=== PATIENT | female | born 1995 | race Caucasian/White ===

== ENCOUNTER 2018-06-24 13:35 | Emergency (ER) | payer BC, OTHER ==
--- NOTE | 2018-06-24 13:57 | EDPHY ---
H & P Stated Complaint: MID, UPPER LEFT AND R BUTTOCK PAIN X 1 WEEK Time Seen by Provider: 06/24/18 13:50 HPI/ROS: CHIEF COMPLAINT: Left upper back pain HISTORY OF PRESENT ILLNESS: The patient is a 23-year-old female with a history of scoliosis and chronic lower back pain. She states that over the last couple of days however she has also has developed some left upper back pain. Just below her shoulder blade. No shortness of breath. No chest pain. No nausea vomiting or diaphoresis. No recent fevers or illness. She did return from a trip to [place] few days ago. She does take control pills and occasionally smokes cigars. No leg pain or swelling. She denies risk of . Her pain is worsened by movement or with palpation. No paresthesias numbness or weakness. Severity: Moderate Modifying factors: Movement REVIEW OF SYSTEMS: Constitutional: denies: chills, fever, recent illness, recent injury EENTM: denies: blurred vision, double vision, nose congestion Respiratory: denies: cough, shortness of breath Cardiac: denies: chest pain, irregular heart rate, lightheadedness, palpitations Gastrointestinal/Abdominal: denies: abdominal pain, diarrhea, nausea, vomiting, blood streaked stools Genitourinary: denies: dysuria, frequency, hematuria, pain Musculoskeletal: See HPI Skin: denies: lesions, rash, jaundice, bruising Neurological: denies: headache, numbness, paresthesia, tingling, dizziness, weakness Hematologic/Lymphatic: denies: blood clots, easy bleeding, easy bruising Immunologic/allergic: denies: HIV/AIDS, transplant 10 systems reviewed and negative except as noted EXAM: GENERAL: Well-appearing, well-nourished and in no acute distress. HEAD: Atraumatic, normocephalic. EYES: Pupils equal round and reactive to light, extraocular movements intact, sclera anicteric, conjunctiva are normal. ENT: TMs normal, nares patent, oropharynx clear without exudates. Moist mucous membranes. NECK: Normal range of motion, supple without lymphadenopathy or JVD. LUNGS: Breath sounds clear to auscultation bilaterally and equal. No wheezes rales or rhonchi. HEART: Regular rate and rhythm without murmurs, rubs or gallops. ABDOMEN: Soft, nontender, normoactive bowel sounds. No guarding, no rebound. No masses appreciated. BACK: Mild tenderness just below left shoulder blade, pain with movement. No visible swelling or rashes. EXTREMITIES: Normal range of motion, no pitting or edema. No clubbing or cyanosis. NEUROLOGICAL: Cranial nerves II through XII grossly intact. Normal speech, normal gait. 5/5 strength, normal movement in all extremities, normal sensation , normal reflexes PSYCH: Normal mood, normal affect. SKIN: Warm, dry, normal turgor, no visible rashes or lesions. Source: Patient Exam Limitations: No limitations - Personal History LMP (Females 10-55): 1-7 Days Ago Current Tetanus/Diphtheria Vaccine: Unsure Current Tetanus Diphtheria and Acellular Pertussis (TDAP): Unsure - Medical/Surgical History Hx Asthma: No Hx Chronic Respiratory Disease: No Hx Diabetes: No Hx Cardiac Disease: No Hx Renal Disease: No Hx Cirrhosis: No Hx Alcoholism: No Hx HIV/AIDS: No Hx Splenectomy or Spleen Trauma: No Other PMH: Scoliosis- no surgery - Family History Significant Family History: No pertinent family hx - Social History Smoking Status: Former smoker Alcohol Use: Sober Drug Use: None Constitutional: Initial Vital Signs Temperature (C) 37.2 C 06/24/18 13:45 Heart Rate 80 06/24/18 13:45 Respiratory Rate 16 06/24/18 13:45 Blood Pressure 141/87 H 06/24/18 13:45 O2 Sat (%) 96 06/24/18 13:45 O2 Delivery Mode Room Air Allergies/Adverse Reactions: No Known Allergies Allergy (Verified 06/24/18 13:45) Home Medications: Medication Instructions Recorded Pimtrea 28 Day Tablet 06/24/18 Medical Decision Making - Diagnostics EKG Interpretation: An EKG obtained and was read and documented in trace view. Please see trace view for full reading and report. Sinus rhythm, no acute ischemic changes Imaging: Discussed imaging studies w/ house calls nurse practitioner Radiologist ED Course/Re-evaluation: 2:50 p.m. We discussed the x-ray and lab results patient is reassured. She tells me now that she is primarily here asking for a note saying that she can go back to work. She woke up with her back hurting her this morning and took the morning off of work. She tried to go back to this afternoon but that her she had to be cleared 1st. I recommended that she rest for a day or 2 as well as use anti-inflammatories and ice. She had her dad understand agree with this plan. We discussed indications for returning to the emergency department. I Differential Diagnosis: Partial list of the Differential diagnosis considered include but were not limited to; muscle strain, radiculopathy, PE and although unlikely based on the history and physical exam, I also considered acute coronary disease, fracture, infection. I discussed these differential diagnoses and the plan with the patient as well as the usual and expected course. The patient understands that the diagnosis is provisional and that in medicine we are not always correct and that further workup is often warranted. Usual and customary warnings were given. All of the patient's questions were answered. The patient was instructed to return to the emergency department should the symptoms at all worsen or return, otherwise to followup with the physician as we discussed. - Data Points Medications Given: Discontinued Medications Ibuprofen (Motrin) 600 mg PO EDNOW ONE Stop: 06/24/18 15:02 Last Admin: 06/24/18 15:10 Dose: 600 mg Point of Care Test Results: CBC CBC Collection Date 06/24/18 CBC Collection Time 14:00 WBC 6.6 RBC 4.38 HGB 14.3 HCT 39.8 PLT 291 Neut # 3.8 Neut 57.4 LYMPH # 2.3 LYMPH 35.6 Other WBC # 0.5 Other WBC 7.0 MCV 90.9 Chemistry 06/24/18 06/24/18 14:22 14:20 POC Sodium 146 mEq/L H mEq/L (135-145) POC Potassium 3.3 mEq/L mEq/L (3.3-5.0) POC Chloride 107.0 mEq/L mEq/L (97-110) POC Total CO2 23 mEq/L mEq/L (22-31) POC BUN 9 mg/dL mg/dL (7-23) POC Creatinine 0.8 mg/dL mg/dL (0.6-1.0) POC Glucose 109 mg/dL H mg/dL (70-100) POC Calcium 9.5 mg/dL mg/dL (8.5-10.4) POC Troponin I 0.00 ng/mL ng/mL (0.00-0.08) D-Dimer D-Dimer Collection Date 06/24/18 D-Dimer Collection Time 14:00 D-Dimer (ng/ml) DDIM <100 ng/mL Departure - Departure Disposition: Home, Routine, Self-Care Clinical Impression: Muscle strain of upper back Condition: Fair Instructions: Muscle Strain (DC) Referrals: Gregoria Roberts MD [Primary Care Provider] - As per Instructions Stand Alone Forms: Work Excuse
--- NOTE | 2018-06-24 14:32 | CPEKG ---
Test Reason : OPEN Blood Pressure : / mmHG Vent. Rate : 069 BPM Atrial Rate : 069 BPM P-R Int : 115 ms QRS Dur : 083 ms QT Int : 377 ms P-R-T Axes : 015 076 062 degrees QTc Int : 404 ms Sinus rhythm Confirmed by Merritt Mackenzie ([id number]), rewrite editor Jose R Oshea ([id number]) on 06/24/2018 2:31:29 PM Referred By: Confirmed By:Merritt Mackenzie
[2018-06-24] MEDS ORDERED: IBUPROFEN 600 MG TAB PO ONE (15:01)
[2018-06-24 15:14] VITALS: BP 108/68
== END 2018-06-24 15:10 | disposition home or self-care (01) ==
LOC: CED 13:35
DX: S29.012A Strain of muscle and tendon of back wall of thorax, initial encounter (principal); X58.XXXA Exposure to other specified factors, initial encounter; M54.9 Dorsalgia, unspecified; G89.29 Other chronic pain; M41.9 Scoliosis, unspecified; Z72.0 Tobacco use
CPT/HCPCS: 71046-PO; 80048-PO; 84484-PO